=== PATIENT | female | born 1960 | race Caucasian/White ===

== ENCOUNTER 2019-09-26 01:50 | Inpatient (IN) | payer MEDICAID, SELFPAY ==
[2019-09-26] VITALS (24 sets, daily range): BP systolic 140–182; BP diastolic 93–123; PULSE 95–130; RESP 16–30; TEMP 36.6–37.2; O2SAT 88–97; BMI 39.6; BMI 39.3
--- NOTE | 2019-09-26 02:29 | EKG12_ITS ---
Test Reason : COLD S/X Blood Pressure : / mmHG Vent. Rate : 131 BPM Atrial Rate : 131 BPM P-R Int : 148 ms QRS Dur : 082 ms QT Int : 300 ms P-R-T Axes : 056 024 038 degrees QTc Int : 443 ms Sinus tachycardia Otherwise normal ECG Confirmed by PÉREZ JOHNSTON, CARA ([id number]), publishing editor ABHIJEET RESENDIZ ([id number]) on 09/28/2019 10:00:57 AM Referred By: NAVID Confirmed By:CARA ORTEZ MD
--- NOTE | 2019-09-26 02:30 | ED.VIS.GEN ---
History of Present Illness Chief Complaint: Cold Sx Narrative: Patient is a 59-year-old female who presents with a cold for 3 days. She complains of subjective fever, sore throat, congestion, rhinorrhea, cough, headache, muscle aches joint aches, shortness of breath. She describes her shortness of breath is mild. No chest pain. No abdominal pain. She was vomiting today. No diarrhea. She denies any medical history. She takes no daily medications. Prior surgical history includes a . No sick contacts at home. Past Medical History - Allergies and Home Meds Allergies/Adverse Reactions: Allergies iodine Adverse Reaction (Verified 09/26/19 01:58) Nausea/Vom/Diarrhea mercury (elemental) Adverse Reaction (Verified 09/26/19 01:58) Nausea/Vom/Diarrhea Primary Care Physician: NOT,DEFINED [NON-STAFF] - Past Medical History: - - Denies medical history Smoking Status: Never smoker Review of Systems All systems negative except as indicated General: Reports: Chills, Sweats Eyes: Denies: Visual changes - bilaterally ENT: Reports: Rhinorrhea, Sore throat. Denies: Bilateral ear pain Cardiovascular: Denies: Chest pain Respiratory: Reports: Dyspnea, Cough, Sputum Gastrointestinal: Reports: Nausea, Vomiting. Denies: Abdominal pain, Diarrhea Musculoskeletal: Reports: Myalgias, Arthralgias Skin: Denies: Rash Neurological: Reports: Headache Hematologic: Denies: Easy bruising Allergy: Denies: Uticaria Physical Exam Vital Signs/Narrative: Vital Signs Temp Pulse Resp BP Pulse Ox 09/26/19 01:51 98.0 F 130 H 18 180/112 H 92 09/26/19 01:50 88 Inital Vital Signs reviewed: Yes General: - - Patient is ill-appearing Head: Normocephalic Eyes: EOMI ENT: Dry mucous membranes, - - Oropharynx clear, nasal congestion noted Neck: Supple Cardiovascular: - - Heart is regular tachycardia without murmur, gallop, rub Respiratory: - - Tachypnea with coarse breath sounds no wheezing no rales Abdomen: Soft, Nontender, Nondistended Back: Nontender Extremities: Nontender Skin: Normal color Neurological: Alert Psychological: Normal affect Diagnostic/Tx/Re-eval 09/26/19 02:50 Chest 1 View (Portable) [RAD] Stat 09/26/19 02:40 Mucosa - Nasopharyngeal Influenza Types A,B Direct FA (DEEPTI) - Final Influenzae B Laboratory Results 09/26/19 09/26/19 09/26/19 02:32 02:32 02:32 WBC 9.7 RBC 5.39 Hgb 15.5 H Hct 46.1 MCV 85.5 MCH 28.8 MCHC 33.6 RDW Std Deviation 37.7 RDW Coeff of Cristi 12.0 Plt Count 158 MPV 9.2 Immature Gran % (Auto) 0.300 Neut % (Auto) 81.4 H Lymph % (Auto) 7.6 L [place] % (Auto) 9.0 Eos % (Auto) 1.6 Baso % (Auto) 0.1 Absolute Neuts (auto) 7.9 H Absolute Lymphs (auto) 0.74 L Nucleated RBC % 0 Sodium 136 Potassium 3.7 Chloride 101 Carbon Dioxide 25.0 Anion Gap 10 BUN 13 Creatinine 1.05 H Estim Creat Clear Calc 51.05 Est GFR (MDRD) Af Amer 69 Est GFR (MDRD) Non-Af 57 L BUN/Creatinine Ratio 12.4 Glucose 136 H Lactic Acid 1.7 Calcium 8.8 Total Bilirubin 0.80 AST 33 ALT 54 Alkaline Phosphatase 93 Total Protein 7.9 Albumin 3.7 Globulin 4.2 Albumin/Globulin Ratio 0.9 - Medical Decision Making EKG shows sinus tachycardia at a rate of 131. Serum laboratory studies unremarkable with a normal lactic acid. Chest x-ray on my review is concerning for left lower lung infiltrate. Rapid influenza positive for influenza B. Patient has been treated with aggressive IV fluids. She was given IV Levaquin as well as Tamiflu. She was given a DuoNeb aerosol. ABG ordered, pending. Patient will require hospitalization. Patient will be discussed with hospitalist for admission. ED Disposition - Plan for ED Patient: Disposition: Acute Care Hospital [facility] Diagnosis: Pneumonia, Influenza Referrals: NOT,DEFINED [NON-STAFF] -
[2019-09-26 02:44] LABS: Absolute Lymphocyte Count 0.74 X10^3/uL (0.83-4.51); Absolute Neutrophil Count 7.9 X10^3/uL (2.0-7.7); Basophil# 0.01 X10^3/uL; Basophil% 0.1 % (0-1); Eosinophil# 0.16 X10^3/uL; Eosinophils% 1.6 % (0-5); Hematocrit 46.1 % (37-47); Hemoglobin 15.5 g/dL (12.0-15.0); Lymphocyte # 0.74 X10^3/ul (4.0); Lymphocyte % 7.6 % (19-41); Mean Corp Hgb Conc 33.6 g/dL (32-36); Mean Corpuscular Hgb 28.8 pg (27.0-32.0); Mean Corpuscular Volume 85.5 fL (81-99); Mean Platelet Vol. 9.2 fl (6.2-12.0); Monocyte# 0.87 X10^3/uL; NRBC Flagged by Analyzer 0 % (0-5); Neutrophil # 7.89 X10^3/uL (2.7-7.7); Neutrophil % 81.4 % (47-70); POSITIVE MORPHOLOGY YES; Platelet Count 158 K/mm3 (150-450); RBC Distribution Width SD 37.7 fl (35.1-43.9); Red Blood Count 5.39 M/mm3 (4.2-5.4); White Blood Count 9.7 K/mm3 (4.4-11.0)
[2019-09-26 02:49] LABS: Differential Indicated SCAN CRITERIA MET
--- NOTE | 2019-09-26 02:50 | RAD_ITS ---
HISTORY: COLD X3 DAYS EXAM: XR Chest 1 View: COMPARISON: None FINDINGS: # of images incl. paperwork: 1 Lungs are clear. Heart is not enlarged . Dexterous scoliosis with mild thoracic spondylosis is chronic. Pulmonary vascularity is distinct. No effusions. RAD/Chest 1 View (Portable) IMPRESSION: Normal. at 0316 Reported and signed by: Vladimir Balbuena MD Electronically Signed: Vladimir Balbuena MD at 3:15 EST Tel , Service support ,
[2019-09-26] MEDS: 0.9% Normal Saline 1,000 ML 1000 ML IV ×2 (02:58→03:25)
[2019-09-26 03:05] LABS: ALB/GLOB Ratio 0.9 RATIO (0.9-2.4); AST(SGOT) 33 U/L (15-37); Alanine Aminotransfer ALT/SGPT 54 U/L (13-56); Albumin, Serum 3.7 g/dL (3.2-5.0); Alkaline Phosphatase 93 U/L (45-117); Anion Gap 10 (5-15); BUN 13 mg/dL (7-18); BUN/Creat Ratio 12.4 RATIO (10-20); Calcium,Total 8.8 mg/dL (8.5-10.1); Chloride 101 mmol/L (98-107); Creatinine, Serum 1.05 mg/dL (0.55-1.02); EST Glomerular Filtration Rate 57 mL/min (>60); Est Glom Filt Rate - Afr Amer 69 mL/min (>60); Estimated Creatinine Clearance 51.05 ml/min; Globulin 4.2 g/dL (2.2-4.2); Glucose 136 mg/dL (74-106); Potassium 3.7 mmol/L (3.5-5.1); Protein, Total 7.9 g/dL (6.4-8.2); Sodium Level 136 mmol/L (136-145)
[2019-09-26 03:07] LABS: Lactic Acid 1.7 mmol/L (0.4-1.9)
[2019-09-26] MEDS: Ipratropium/Albuterol Sulfate 3 ML AMPUL.NEB INHALATION ×4 (03:07→18:54)
--- NOTE | 2019-09-26 03:09 | ED.RN ---
no old ekgs
[2019-09-26 03:21] LABS: Allen Test POS; Base Excess -2 mmol/L (-2 to +2); Bicarbonate 22.6 mmol/L (22-26); Blood Gas Specimen Type ART; O2 Delivery Device Nasal Can; PO2 81 mmHG (75-100); SITE L Radial; SO2 96 % (95-99); Time Given 310; Total Carbon Dioxide 24 mmol/L; pCO2 34.1 mmHg (35-45); pH 7.43 (7.35-7.45)
[2019-09-26] MEDS: Oseltamivir Phosphate 75 MG Capsule PO (03:25)
[2019-09-26] MEDS: levoFLOXacin IV 750 MG/150 ML BAG 100 MG IV ×2 (03:25→21:16)
--- NOTE | 2019-09-26 03:59 | PCM.HP.STD ---
Problem List (1) Sepsis Status: Acute (2) Community acquired pneumonia Status: Suspected (3) Influenza Status: Acute History of Present Illness Date of Admission: 09/26/19 Chief Complaint: Cough, sore throat. The patient is a 59 year old F patient with no past medical history presented to the emergency room because of 3 days history of sore throat, cough and sputum production. Her illness started 3 days ago with productive cough with small amount of yellow sputum, associated with sore throat, subjective fever as well as nasal congestion. Since yesterday, she has been having increasing shortness of breath, mainly exertional, continued to have productive cough with minimal sputum as well as headache and malaise. She denied chest pain, palpitation, dizziness or lightheadedness. In the emergency department, she was tachycardic, tachypneic and hypoxic but she was afebrile. Blood pressure was elevated. Routine blood work was unremarkable. Lactic acid was normal. LFT was unremarkable. ABG revealed pH of 7.43, PCO2 of 34 and PO2 of 81. Chest x-ray revealed cardiomegaly, small left pleural effusion and questionable left basilar infiltrate. It was read by radiology as normal. Nasal swab for influenza a and B came back positive for influenza B. She is being admitted for sepsis secondary to influenza and probable community-acquired pneumonia, complicated by acute hypoxic respiratory failure. Past Medical History Allergies iodine Adverse Reaction (Verified 09/26/19 01:58) Nausea/Vom/Diarrhea mercury (elemental) Adverse Reaction (Verified 09/26/19 01:58) Nausea/Vom/Diarrhea Home Medications: Ambulatory Orders Medication Instructions Recorded NK 09/26/19 Surgical History: - - section. 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 Denies: Chills Eyes: Denies: Blurred vision, Double vision, Drainage, Redness HEENT: Reports: Head Aches, Nasal Congestion, Sore Throat. Denies: Difficulty Hearing, Ear Pain, Eye Pain Cardiovascular: Denies: Chest Pain, Chest Pressure, Chest Tightness, Heaviness, Light Headedness, Palpitations, Syncope Respiratory: Reports: Cough, Shortness of breath upon exertion, Sputum production. Denies: Pleuritic Pain, Wheezing Gastrointestinal: Denies: Abdominal Pain, Constipation, Diarrhea, Nausea, Vomiting Genitourinary: Denies: Dysuria, Frequency, Hematuria Musculoskeletal: Denies: Arm Pain, Back Pain, Foot Pain Skin: Denies: Dryness, Rash Neurological: Denies: Balance problems, Double vision, Change in Speech, Slurred speech, Confusion, Incoordination, Numbness Psychiatric: Denies: Anxiety, Depression Endocrine: Denies: Change in Body Habitus, Polydipsia, Polyuria VTE Information - Inpt Only VTE Present on Admission: No VTE Mechan Device Prophylaxis: None VTE Pharm Prophylaxis ordered?: Yes Patient Problems: Active and Suspected Problems Sepsis (Acute) Community acquired pneumonia (Suspected) Influenza (Acute) - Physical Exam Vitals/I&O's: Vital Signs Temp Pulse Resp BP Pulse Ox 98.0 F 129 H 20 H 169/107 H 94 09/26/19 01:51 09/26/19 03:27 09/26/19 03:27 09/26/19 03:27 09/26/19 03:27 Oxygen Flow Rate (L/min) 2 Oxygen Delivery Method Nasal Cannula Weight: 230 lb 13.184 oz Body Mass Index (BMI) 39.6 Intake and Output for Last 24 Hours 09/24/19 09/25/19 09/26/19 23:59 23:59 23:59 Intake Total 1000 / 1000 Balance 1000 / 1000 General: Alert, Oriented x3, Cooperative, - - Moderately short of breath. HEENT: Atraumatic, PERRLA, EOMI, Normocephalic Oral: Moist Mucosa, No Gingival or Mucosal Lesions/ Ulcerations Neck: Supple, No JVD, Negative Carotid Bruits, Trachea Midline, Thyroid Normal Size and Texture Lungs: Diminished, Rhonchi, Short of Breath, Tachypneic, - - Decreased breath sounds bilateral, more on the left base, faint crackles on the left base, bronchial breathing on the right lung. Cardiovascular: Regular rate, Regular Rhythm, Normal S1, Normal S2, No murmurs, PMI Normal Abdomen: Bowel Sounds Present, Soft, Non Tender, Non-Distended, No Hepato-splenomegaly Extremities: No clubbing, No cyanosis, No edema Skin: No rashes, No breakdown Lymphatic: No Cervical, Supraclavicular, or Inguinal Adenopathy Neurological: Cranial nerves II-XII grossly intact, Motor Exam 5/5 strength throughout Psych/Mental Status: Normal Affect, Appropriate, Alert and oriented to time, place, person, mood and affect Microbiology Past 72 Hours 09/26/19 02:40 Mucosa - Nasopharyngeal Influenza Types A,B Direct FA (DEEPTI) - Final Influenzae B Laboratory Results 09/26/19 02:32: WBC 9.7, RBC 5.39, Hgb 15.5 H, Hct 46.1, MCV 85.5, MCH 28.8, MCHC 33.6, RDW Std Deviation 37.7, RDW Coeff of Cristi 12.0, Plt Count 158, MPV 9.2, Immature Gran % (Auto) 0.300, Neut % (Auto) 81.4 H, Lymph % (Auto) 7.6 L, [place] % (Auto) 9.0, Eos % (Auto) 1.6, Baso % (Auto) 0.1, Absolute Neuts (auto) 7.9 H, Absolute Lymphs (auto) 0.74 L, Nucleated RBC % 0 09/26/19 02:32: Sodium 136, Potassium 3.7, Chloride 101, Carbon Dioxide 25.0, Anion Gap 10, BUN 13, Creatinine 1.05 H, Estim Creat Clear Calc 51.05, Est GFR (MDRD) Af Amer 69, Est GFR (MDRD) Non-Af 57 L, BUN/Creatinine Ratio 12.4, Glucose 136 H, Calcium 8.8, Total Bilirubin 0.80, AST 33, ALT 54, Alkaline Phosphatase 93, Total Protein 7.9, Albumin 3.7, Globulin 4.2, Albumin/Globulin Ratio 0.9 09/26/19 02:32: Lactic Acid 1.7 09/26/19 03:14: Specimen Type ART, Sample Site L Radial, pH 7.43, Bicarbonate Actual 22.6, POC Total CO2 24, Base Excess -2, O2 Saturation 96, ABG pCO2 34.1 L, ABG pO2 81, Adama Test POS, O2 Delivery Device Nasal Can, Liter Flow 3.0, Blood Gas Notified Whom ED MD, Blood Gas Notified Time 310 Clinical Impression(s) from Imaging Studies Chest X-Ray 09/26/19 02:50 IMPRESSION: Normal. at 0316 Reported and signed by: Vladimir Balbuena MD Electronically Signed: Vladimir Balbuena MD at 3:15 EST Tel , Service support , Current Medications Sodium Chloride () 1,000 mls @ 1,000 mls/hr IV .Q1H KYRIE Stop: 09/26/19 04:29 Last Admin: 09/26/19 03:25 Dose: 1,000 mls/hr Documented by: Levofloxacin (Levaquin Iv) 750 mg in 150 mls @ 100 mls/hr IV X1 ONE Stop: 09/26/19 04:35 Last Admin: 09/26/19 03:25 Dose: 100 mls/hr Documented by: Assessment/Plan All Active Problems Sepsis (Acute) Influenza (Acute) This is a 59 years old female patient presented to the emergency room because of sore throat, productive cough, subjective fever, rhinorrhea and shortness of breath and she was positive for influenza A, was tachycardic, tachypneic and hypoxic and she was found to have questionable left basilar infiltrate and she is being admitted for sepsis due to influenza as well as probable pneumonia which was complicated by acute hypoxic respiratory failure. #1 sepsis: Secondary to influenza and probable pneumonia. It is based on tachycardia, tachypnea and probable source of infection. Lactic acid was normal. No leukocytosis. Plan: Admit to [facility] floor, telemetry, IV fluids, blood culture, sputum culture, start IV antibiotics and Tamiflu, bronchodilators, repeat CBC and BMP tomorrow morning. #2 influenza: Plan to start Tamiflu twice daily. #3 probable community-acquired pneumonia/bronchopneumonia: Chest x-ray reviewed, showed small left pleural effusion and questionable left basal infiltrate. Auscultation, she does have crackles in the left base as well as bronchial breathing on the right lung. Plan: Sputum culture, blood culture, start IV Levaquin, bronchodilators, incentive spirometry. #4 acute hypoxic respiratory failure: Secondary to #3. Upon arrival to ED, pulse ox was 88% on room air. Patient was dyspneic and tachypneic. ABG reviewed, revealed PCO2 of 34, PO2 of 81 and pH of 7.43. Plan: IV antibiotics as above, bronchodilators, incentive spirometer. #5 DVT prophylaxis: Subcu Lovenox. This note was generated with [employer] dictation software. It may contain incorrect words, spelling, and punctuation that were not noted in checking the note before signing. Code Visit Inpatient E&M: 75746 Init Hosp L2
[2019-09-26] MEDS: hydrALAZINE 20 MG/ML Vial 10 MG IV ×2 (04:38→10:40)
[2019-09-26] MEDS: 0.9% Saline Lock 10 ML Syringe IV (04:38)
[2019-09-26 04:47] LABS: D-Dimer Quantitative (DVT/PE) 1.42 FEU/ug/m (0.27-0.49)
--- NOTE | 2019-09-26 04:54 | CT_ITS ---
STUDY: CTA CHEST REASON FOR EXAM: Female, 59 years old. ELEVATED D-DIMER, HYPOXIA, INFLUENZA-B RADIATION DOSAGE (If Supplied By Facility): CTDIvol = ( 10.80 ) mGy, DLP = ( 414.51 ) mGycm TECHNIQUE: The examination was performed with the intravenous administration of 75 CC ISOVUE 370. Post-processing of the angiographic images was performed, with multiplanar reformation and 3D reconstruction. Individualized dose optimization techniques were used for this CT. COMPARISON: None. FINDINGS: Normal enhancement of the main pulmonary artery and right and left pulmonary arteries. Normal enhancement of the bilateral peripheral pulmonary arteries. There is no demonstrated pulmonary embolism. There is tortuosity of the thoracic aorta. There is no demonstrated aortic dissection. Normal heart and pericardium. Mildly enlarged mediastinal lymph nodes are likely reactive. No dominant jean carlos mass. Normal hilar regions. Normal visualized trachea and bronchi. The lungs are under expanded. Patchy consolidation of the bilateral lower lobes, lingula with ill-defined areas of groundglass opacity along the bronchovascular structures in the lingula and left lower lobe, suggesting pneumonitis/bronchiolitis. Normal pleura. Normal chest wall structures. There are degenerative changes of thoracic spine. Normal visualized upper abdomen. CT/CTA Chest W/WO Contrast IMPRESSION: 1. No central or segmental pulmonary embolism. 2. Patchy bronchovascular groundglass opacities in the lingula and left lower lobe suggesting pneumonitis or bronchiolitis. 3. Bilateral lower lobe atelectasis. Electronically Signed: James Nova MD (Brooks) at 17:55 EST , Service support ,
[2019-09-26 04:55] LABS: Thyroid Stim Hormone (TSH) 1.29 uIU/mL (0.358-3.74)
[2019-09-26] MEDS: BENZOCAINE/MENTHOL 1 LOZENGE MUCOUS MEM (05:12)
[2019-09-26] MEDS: Ondansetron 4 MG/2 ML Vial IV (05:12)
[2019-09-26] MEDS: Hydrocortisone Sod Succinate 100 MG/2 ML Vial 200 MG IV ×2 (05:58→11:32)
[2019-09-26] MEDS: 0.9% Normal Saline 1,000 ML 100 ML IV ×2 (06:12→16:48)
--- NOTE | 2019-09-26 08:58 | PN_ITS ---
Patient Problems: Active and Suspected Problems Pneumonia (Acute) Sepsis (Acute) Community acquired pneumonia (Suspected) Influenza (Acute) Reason for Visit: influenza Subjective: Feeling better. Breathing better on oxygen. Did not have influenza vaccination this year, but willing to have it now. Vitals/I&O's: Vital Signs Temp Pulse Resp BP Pulse Ox 36.6 C 118 H 20 H 148/97 H 94 09/26/19 08:13 09/26/19 08:14 09/26/19 08:13 09/26/19 08:13 09/26/19 08:13 Oxygen Flow Rate (L/min) 2 Oxygen Delivery Method Nasal Cannula Weight: 103.9 kg Body Mass Index (BMI) 39.3 Intake and Output for Last 24 Hours 09/24/19 09/25/19 09/26/19 23:59 23:59 23:59 Intake Total 4300 / 4300 Balance 4300 / 4300 General: Alert, No apparent distress HEENT: Atraumatic, Normocephalic Oral: Moist Mucosa, No Gingival or Mucosal Lesions/ Ulcerations Neck: Trachea Midline, - - +LAD Lungs: Diminished, Wheezes Cardiovascular: Regular Rhythm, Normal S1, Normal S2, No murmurs, Tachycardic Abdomen: Bowel Sounds Present, Soft, Non Tender, Non-Distended, No Hepato-splenomegaly Extremities: No edema, No Calf Tenderness Skin: No rashes, No breakdown Musculoskeletal: No Tenderness to Palpation of Joints or Extremities, No Muscle Wasting Neurological: Neuro grossly intact, Muscle tone normal Psych/Mental Status: Normal Affect, Appropriate Microbiology Past 72 Hours 09/26/19 02:40 Mucosa - Nasopharyngeal Influenza Types A,B Direct FA (DEEPTI) - Final Influenzae B Laboratory Results 09/26/19 02:32: WBC 9.7, RBC 5.39, Hgb 15.5 H, Hct 46.1, MCV 85.5, MCH 28.8, MCHC 33.6, RDW Std Deviation 37.7, RDW Coeff of Cristi 12.0, Plt Count 158, MPV 9.2, Immature Gran % (Auto) 0.300, Neut % (Auto) 81.4 H, Lymph % (Auto) 7.6 L, [place] % (Auto) 9.0, Eos % (Auto) 1.6, Baso % (Auto) 0.1, Absolute Neuts (auto) 7.9 H, Absolute Lymphs (auto) 0.74 L, Nucleated RBC % 0 09/26/19 02:32: Sodium 136, Potassium 3.7, Chloride 101, Carbon Dioxide 25.0, Anion Gap 10, BUN 13, Creatinine 1.05 H, Estim Creat Clear Calc 51.05, Est GFR (MDRD) Af Amer 69, Est GFR (MDRD) Non-Af 57 L, BUN/Creatinine Ratio 12.4, Glucose 136 H, Calcium 8.8, Total Bilirubin 0.80, AST 33, ALT 54, Alkaline Phosphatase 93, Total Protein 7.9, Albumin 3.7, Globulin 4.2, Albumin/Globulin Ratio 0.9 09/26/19 02:32: Lactic Acid 1.7 09/26/19 02:32: TSH 1.29 09/26/19 02:32: D-Dimer Quant (PE/DVT) 1.42 H* 09/26/19 03:14: Specimen Type ART, Sample Site L Radial, pH 7.43, Bicarbonate Actual 22.6, POC Total CO2 24, Base Excess -2, O2 Saturation 96, ABG pCO2 34.1 L , ABG pO2 81, Adama Test POS, O2 Delivery Device Nasal Can, Liter Flow 3.0, Blood Gas Notified Whom ED MD, Blood Gas Notified Time 310 Current Medications Acetaminophen (Tylenol) 650 mg PO Q6H PRN PRN PRN Reason: Pain Score 1-10/Temp > 100.7 F Albuterol Sulfate (Ventolin Aerosols) 2.5 mg INHALATION Q4H PRN PRN PRN Reason: Shortness of breath, wheezing Albuterol/Ipratropium (Duoneb) 3 ml INHALATION Q6H.RT KYRIE Last Admin: 09/26/19 07:01 Dose: 3 ml Documented by: Diphenhydramine HCl (Benadryl) 50 mg IV X1 ONE Stop: 09/26/19 11:01 Enoxaparin Sodium (Lovenox) 30 mg SC DAILY KYRIE Guaifenesin (Robitussin) 20 ml PO Q4H PRN PRN PRN Reason: COUGH Hydralazine HCl (Apresoline Iv) 10 mg IV Q6H PRN PRN PRN Reason: for SBP>160 Last Admin: 09/26/19 04:38 Dose: 10 mg Documented by: Hydrocortisone Sodium Succinate (Solu-Cortef) 200 mg IV X1 ONE Stop: 09/26/19 11:01 Sodium Chloride () 1,000 mls @ 100 mls/hr IV .Q10H [facility] Last Admin: 09/26/19 06:12 Dose: 100 mls/hr Documented by: Levofloxacin (Levaquin Iv) 750 mg in 150 mls @ 100 mls/hr IV Q24@2200 KYRIE Sodium Chloride () 250 mls @ 15 mls/hr IV .[id number] PRN PRN Reason: Saline Flush Sodium Chloride () 250 mls @ 15 mls/hr IV .[id number] PRN PRN Reason: Additional IVPB Infusion Nutritional Formula (Lactose Free) (Ensure Enlive) 120 ml PO 4X/DAY KYRIE Ondansetron HCl (Zofran) 4 mg IV Q8H PRN PRN PRN Reason: NAUSEA/VOMITING Last Admin: 09/26/19 05:12 Dose: 4 mg Documented by: Oseltamivir Phosphate (Tamiflu) 30 mg PO BID [facility] Stop: 09/30/19 10:01 Pseudoephedrine HCl (Sudafed) 30 mg PO Q6H PRN PRN PRN Reason: CONGESTION Sodium Chloride () 10 - 40 ml IV UD PRN PRN Reason: SALINE FLUSH Last Admin: 09/26/19 04:38 Dose: 10 ml Documented by: Throat Lozenges (Cepacol Sore Throat Lozenge) 1 lozenge MUCOUS MEM Q2H PRN PRN PRN Reason: Sore throat or cough Last Admin: 09/26/19 05:12 Dose: 1 lozenge Documented by: STROKE Vital Signs/Narrative: Vital Signs Temp Pulse Resp BP Pulse Ox 09/26/19 08:14 118 H 09/26/19 08:13 36.6 C 118 H 20 H 148/97 H 94 09/26/19 07:29 119 H 09/26/19 06:03 37.2 C 121 H 30 H 158/105 H 95 09/26/19 05:20 37.2 C 120 H 24 H 165/112 H 96 Medical Necessity - Tobacco Use Smoking Status: Never smoker Assessment/Plan All Active Problems Pneumonia (Acute) Sepsis (Acute) Influenza (Acute) 1. sepsis: * 2/2 influenza B * ongoing * supportive mgmt 2. Acute influenza B infection * continue oseltamivir * Recommended patient receive the vax now to prevent or lessen the severity of jackie A. She agreed. Recommended she be vaccinated annually. 3. Acute bronchitis * CXR not convincing for pneumonia * CTA ordered and if pneumonia found, will continue with levofloxacin, if not, then will discontinue LVQ. * continue bronchodilators * start prednisone this after noon after she has been premedicated for contrast. 4. Acute hypoxic respiratory failure * non-smoker * no h/o asthma/COPD * likely due to bronchitis from influenza * check amb pulse ox prior to discharge 5. VTE proph: mod risk. LMWH. Code Visit Procedures: Other Procedure - See Report - non-billable rounding as patient was admitted after midnight.
[2019-09-26] MEDS: Oseltamivir Phosphate 30 MG Capsule PO ×2 (10:33→21:16)
[2019-09-26] MEDS: Enoxaparin 30 MG/0.3 ML Syringe SC (10:33)
--- NOTE | 2019-09-26 10:37 | NURSING ---
EKG on the monitor at nurses station shows pt HR at 138. This nurse went back to check on pt and pt was in bathroom with RACHAEL Garcia primary at bedside. Informed Radha of HR. Pt came back to bed, layed down and this nurse fixed the two leads that were off of her and after a few minutes of pt returning to bed, HR is 120's. Radha CANO remains at bedside.
[2019-09-26] MEDS: Acetaminophen 325 MG Tablet 650 MG PO (10:46)
[2019-09-26] MEDS: DiphenhydrAMINE 50 MG/ML Syringe IV (11:31)
[2019-09-26] MEDS: predniSONE 20 MG Tablet 40 MG PO (16:46)
[2019-09-27] VITALS (10 sets, daily range): BP systolic 149–162; BP diastolic 99–111; PULSE 68–120; RESP 16–19; TEMP 36.5–36.7; O2SAT 90–97
[2019-09-27] MEDS: Ipratropium/Albuterol Sulfate 3 ML AMPUL.NEB INHALATION ×2 (01:09→06:52)
[2019-09-27] MEDS: 0.9% Normal Saline 1,000 ML 100 ML IV (04:23)
[2019-09-27 05:37] LABS: Absolute Lymphocyte Count 1.04 X10^3/uL (0.83-4.51); Absolute Neutrophil Count 7.4 X10^3/uL (2.0-7.7); Basophil# 0.01 X10^3/uL; Basophil% 0.1 % (0-1); Hematocrit 40.9 % (37-47); Hemoglobin 13.8 g/dL (12.0-15.0); Lymphocyte # 1.04 X10^3/ul (4.0); Lymphocyte % 11.5 % (19-41); Mean Corp Hgb Conc 33.7 g/dL (32-36); Mean Corpuscular Hgb 29.2 pg (27.0-32.0); Mean Corpuscular Volume 86.7 fL (81-99); Mean Platelet Vol. 9.4 fl (6.2-12.0); Monocyte# 0.62 X10^3/uL; Monocyte% 6.8 % (0-10); NRBC Flagged by Analyzer 0 % (0-5); Neutrophil # 7.36 X10^3/uL (2.7-7.7); Neutrophil % 81.3 % (47-70); Platelet Count 170 K/mm3 (150-450); RBC Distribution Width CV 12.2 % (11.6-14.6); RBC Distribution Width SD 38.9 fl (35.1-43.9); Red Blood Count 4.72 M/mm3 (4.2-5.4); White Blood Count 9.1 K/mm3 (4.4-11.0)
[2019-09-27 06:07] LABS: Anion Gap 7 (5-15); BUN 18 mg/dL (7-18); BUN/Creat Ratio 22.1 RATIO (10-20); Chloride 106 mmol/L (98-107); Creatinine, Serum 0.82 mg/dL (0.55-1.02); EST Glomerular Filtration Rate 77 mL/min (>60); Est Glom Filt Rate - Afr Amer 93 mL/min (>60); Estimated Creatinine Clearance 65.36 ml/min; Glucose 105 mg/dL (74-106); Potassium 3.7 mmol/L (3.5-5.1); Sodium Level 139 mmol/L (136-145)
[2019-09-27] MEDS: Oseltamivir Phosphate 30 MG Capsule PO (09:04)
[2019-09-27] MEDS: Enoxaparin 30 MG/0.3 ML Syringe SC (09:04)
[2019-09-27] MEDS: predniSONE 20 MG Tablet 40 MG PO (09:04)
--- NOTE | 2019-09-27 09:12 | DCINST_ITS ---
- Discharge Diagnoses Current Active Problems: Current Active and Chronic Problems Pneumonia (Acute) Sepsis (Acute) Influenza (Acute) You will use the following diet at home:: No restrictions Your food should be the consistency of: Regular Your liquids should be the consistency of: Regular/Thin Discharge Activity: Return to Normal Activity Call your doctor if you observe: Fever of 101 or Higher, Shortness of breath Instructions: Treating Pneumonia, Pneumonia Allergies/Adverse Reactions: Allergies iodine Adverse Reaction (Verified 09/26/19 01:58) Nausea/Vom/Diarrhea mercury (elemental) Adverse Reaction (Verified 09/26/19 01:58) Nausea/Vom/Diarrhea Medications to take at Discharge NK 09/26/19 Primary Care Physician: NOT,DEFINED [NON-STAFF] - Test Results: Test results from this visit will be discussed in further detail at your follow- up appointment, if applicable. Please Follow Up With: primary care physician When: 2 weeks. Proposed Discharge Date: 09/27/19
--- NOTE | 2019-09-27 09:20 | DS.PCM_ITS ---
Discharge Date and Diagnosis - Problem List Patient Problems: Active and Suspected Problems Pneumonia (Acute) Sepsis (Acute) Community acquired pneumonia (Suspected) Influenza (Acute) Date of Admission: 09/26/19 Date of Discharge: 09/27/19 - Primary Discharge Diagnosis Active and Suspected Problems Pneumonia (Acute) Sepsis (Acute) Community acquired pneumonia (Suspected) Influenza (Acute) Hospital Course and Treatment Imaging Results: Clinical Impression(s) from Imaging Studies Chest X-Ray 09/26/19 02:50 IMPRESSION: Normal. at 0316 Reported and signed by: Vladimir Balbuena MD Electronically Signed: Vladimir Balbuena MD at 3:15 EST Tel , Service support , Chest CTA 09/26/19 04:54 IMPRESSION: 1. No central or segmental pulmonary embolism. 2. Patchy bronchovascular groundglass opacities in the lingula and left lower lobe suggesting pneumonitis or bronchiolitis. 3. Bilateral lower lobe atelectasis. Electronically Signed: James Nova MD ([place]) at 17:55 EST , Service support , Operations: None Procedures: None Summary of Care Provided: The patient is a 59 year old F presents with a cough and shortness of breath. Patient was hypoxic upon arrival. Patient was tested positive for influenza B. Patient admits to not having influenza vaccination this year. Patient had elevated d-dimer and patient did undergo a CT angiogram of the chest. Patient has a noted iodine allergy so need to be premedicated. She underwent a CT angiogram the chest that showed no pulmonary embolism but did show some small consolidations in bilateral lower lobes. Patient was started on levofloxacin. Patient is overall feeling better. Patient will have an amatory pulse ox today and will be discharged. Patient may or may not require oxygen. Patient will continue with the Tamiflu to complete the 5-day course, complete 5 more days of levofloxacin, complete a 5-day burst of prednisone and I have an albuterol metered-dose inhaler. Patient instructed to have influenza vaccinations yearly and did receive a influenza vaccination while she was here. Patient had pneumonia and this may have been a secondary pneumonia due to the influenza. Being that patient is from the community this may be more of a pneumococcal type pneumonia. [] Patient Problems: Active and Suspected Problems Pneumonia (Acute) Sepsis (Acute) Community acquired pneumonia (Suspected) Influenza (Acute) - Physical Exam Vitals/I&O's: Vital Signs Temp Pulse Resp BP Pulse Ox 36.7 C 116 H 18 149/104 H 96 09/27/19 09:00 09/27/19 09:00 09/27/19 09:00 09/27/19 09:00 09/27/19 09:00 Oxygen Flow Rate (L/min) 2 Oxygen Delivery Method Nasal Cannula Weight: 103.9 kg Body Mass Index (BMI) 39.3 Intake and Output for Last 24 Hours 09/25/19 09/26/19 09/27/19 23:59 23:59 23:59 Intake Total 5666.67 / 6016.67 1350 / 1350 Output Total 600 / 600 Balance 5666.67 / 6016.67 750 / 750 General: Alert, Cooperative, No apparent distress HEENT: Atraumatic, Normocephalic Oral: Moist Mucosa, No Gingival or Mucosal Lesions/ Ulcerations Lungs: Normal air movement, - - crackles in bases Cardiovascular: Regular rate, Regular Rhythm, Normal S1, Normal S2 Abdomen: Bowel Sounds Present, Soft, Non Tender, Non-Distended, No Hepato-s plenomegaly Extremities: No edema, No Calf Tenderness Psych/Mental Status: Normal Affect, Appropriate Microbiology Past 72 Hours 09/26/19 02:40 Mucosa - Nasopharyngeal Influenza Types A,B Direct FA (DEEPTI) - Final Influenzae B Laboratory Results 09/27/19 05:06: WBC 9.1, RBC 4.72, Hgb 13.8, Hct 40.9, MCV 86.7, MCH 29.2, MCHC 33.7, RDW Std Deviation 38.9, RDW Coeff of Cristi 12.2, Plt Count 170, MPV 9.4, Immature Gran % (Auto) 0.300, Neut % (Auto) 81.3 H, Lymph % (Auto) 11.5 L, [place] % (Auto) 6.8, Eos % (Auto) 0.0, Baso % (Auto) 0.1, Absolute Neuts (auto) 7.4, Absolute Lymphs (auto) 1.04, Nucleated RBC % 0 09/27/19 05:06: Sodium 139, Potassium 3.7, Chloride 106, Carbon Dioxide 26.0, Anion Gap 7, BUN 18, Creatinine 0.82, Estim Creat Clear Calc 65.36, Est GFR (MDRD) Af Amer 93, Est GFR (MDRD) Non-Af 77, BUN/Creatinine Ratio 22.1 H, Glucose 105, Calcium 8.0 L Current Medications Acetaminophen (Tylenol) 650 mg PO Q6H PRN PRN PRN Reason: Pain Score 1-10/Temp > 100.7 F Last Admin: 09/26/19 10:46 Dose: 650 mg Documented by: Albuterol Sulfate (Ventolin Aerosols) 2.5 mg INHALATION Q4H PRN PRN PRN Reason: Shortness of breath, wheezing Albuterol/Ipratropium (Duoneb) 3 ml INHALATION Q6H.RT [facility] Last Admin: 09/27/19 06:52 Dose: 3 ml Documented by: Enoxaparin Sodium (Lovenox) 30 mg SC DAILY [facility] Last Admin: 09/27/19 09:04 Dose: 30 mg Documented by: Guaifenesin (Robitussin) 20 ml PO Q4H PRN PRN PRN Reason: COUGH Hydralazine HCl (Apresoline Iv) 10 mg IV Q6H PRN PRN PRN Reason: for SBP>160 Last Admin: 09/26/19 10:40 Dose: 10 mg Documented by: Sodium Chloride () 1,000 mls @ 100 mls/hr IV .Q10H [facility] Last Admin: 09/27/19 04:23 Dose: 100 mls/hr Documented by: Levofloxacin (Levaquin Iv) 750 mg in 150 mls @ 100 mls/hr IV Q24@2200 [facility] Last Infusion: 09/26/19 22:46 Dose: Infused Documented by: Sodium Chloride () 250 mls @ 15 mls/hr IV .[id number] PRN PRN Reason: Saline Flush Sodium Chloride () 250 mls @ 15 mls/hr IV .[id number] PRN PRN Reason: Additional IVPB Infusion Nutritional Formula (Lactose Free) (Ensure Enlive) 120 ml PO 4X/DAY [facility] Last Admin: 09/27/19 09:04 Dose: Not Given Documented by: Ondansetron HCl (Zofran) 4 mg IV Q8H PRN PRN PRN Reason: NAUSEA/VOMITING Last Admin: 09/26/19 05:12 Dose: 4 mg Documented by: Oseltamivir Phosphate (Tamiflu) 30 mg PO BID [facility] Stop: 09/30/19 10:01 Last Admin: 09/27/19 09:04 Dose: 30 mg Documented by: Prednisone () 40 mg PO DAILY@0800 [facility] Last Admin: 09/27/19 09:04 Dose: 40 mg Documented by: Pseudoephedrine HCl (Sudafed) 30 mg PO Q6H PRN PRN PRN Reason: CONGESTION Sodium Chloride () 10 - 40 ml IV UD PRN PRN Reason: SALINE FLUSH Last Admin: 09/26/19 04:38 Dose: 10 ml Documented by: Throat Lozenges (Cepacol Sore Throat Lozenge) 1 lozenge MUCOUS MEM Q2H PRN PRN PRN Reason: Sore throat or cough Last Admin: 09/26/19 05:12 Dose: 1 lozenge Documented by: Discharge Diet: No Restrictions Discharge Activity: Return to Normal Activity Call your doctor if you observe: Fever of 101 or Higher, Shortness of breath Home Medications: Medications to take at Discharge Albuterol Inhaler [Ventolin Hfa] 1 - 2 puff INHALATION Q4H PRN PRN #1 inhaler 09/27/19 Oseltamivir Phosphate [Tamiflu] 30 mg PO BID #7 cap 09/27/19 levoFLOXacin tablet [Levaquin tablet] 750 mg PO DAILY #5 tab 09/27/19 predniSONE tablet 2 tab PO DAILY@0800 #6 tab 09/27/19 Following Prescrptions Were Given to Patient: levoFLOXacin tablet [Levaquin tablet] 750 mg PO DAILY #5 tab Transmission Status: Pending to [id number] predniSONE tablet 2 tab PO DAILY@0800 #6 tab Transmission Status: Received by [id number] Oseltamivir Phosphate [Tamiflu] 30 mg PO BID #7 cap Transmission Status: Received by [id number] Albuterol Inhaler [Ventolin Hfa] 1 - 2 puff INHALATION Q4H PRN PRN #1 inhaler PRN Reason: Shortness Of Breath Transmission Status: Pending to [id number] Primary Care Physician: NOT,DEFINED [NON-STAFF] - Please Follow Up With: primary care physician When: 2 weeks. Patient Instructions: Treating Pneumonia, Pneumonia Disposition: Home Minutes spent on discharge:: 35 Patient Condition:: Good Medical Necessity - Tobacco Use Smoking Status: Never smoker Meaningful Use Info Meaningful Use Diagnoses (Choose all that apply): None applicable Code Visit Inpatient E&M: 30331 Disch Hosp
--- NOTE | 2019-09-27 11:11 | CASEMGMT ---
RN CM Assessment Presentation: sepsis, pneumonia, influenza Intro role of CM and purpose of RN CM assessment. Demographics, PCP and Pharmacy verified. Pt is awake, alert, plan is for dc today. Pt states she does not have medical insurance or PCP. List of area PCP's given and pt updated that many PCP's have financial assist for patients. PCP: none Specialists: none Preferred Pharmacy: [facility], [place], [place] Insurance: none Prescription Benefit: none LNOK: jamaal Salas Living Arrangements: pt lives independently, no care needs identified. Transportation: drives DME: none. Pt was tested for home oxygen. Did not qualify HHC: nonw Patient DC goals: Home DC PLAN: Home. Dev GIL RN ACM
--- NOTE | 2019-09-27 11:44 | CASEMGMT ---
Social Work Note Pt is listed as self-pay. PFS saw pt. Per PFS notes, PFS CALLED PTS ROOM SHE STATED SHE IS A FAMILY OF 1, SHE IS . SHE LOST HER JOB IN JUL. 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 PRIOR TO UNEMPLOYMENT WAS $2178.40 A MONTH. May, TOTAL GROSS INCOME $5560.80 OVER GUIDELINES FOR [facility]CAP. EXPLAINED SHE MAY[facility] ELIGIBLE [facility]. ASKED FOR PT TO APPLY FOR [facility], NEED DEBRA DENIAL GROSS INCOME May, AND CURRENT BANK STATEMENT. 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
== END 2019-09-27 12:50 | disposition home or self-care (01) | DRG 871 ==
LOC: ED 03:14 → MS3 04:19
PROVIDERS: Admitting Provider Hospitalist; Emergency Provider Emergency Medicine
DX: A41.89 Other specified sepsis (principal); J10.08 Influenza due to other identified influenza virus with other specified pneumonia; J13 Pneumonia due to Streptococcus pneumoniae; J96.01 Acute respiratory failure with hypoxia; Z23 Encounter for immunization; Z91.041 Radiographic dye allergy status
CPT/HCPCS: 36415; 36600; 71045; 71275; 80048; 80053; 82803; 83605; 84443; 85025; 85379; 87040; 87804; 93005; 94640; 99251; 99283; J7030; Q9967; 90686; A4216; G0463; J2405